=== PATIENT | female | born 1970 | race Caucasian/White ===

== ENCOUNTER → 2017-10-14 | Outpatient (CLI) | payer BC ==
[2017-10-15 12:37] LABS: ACTH 6.74 pg/mL (0.00-45.99)
== END | disposition home or self-care (01) ==
LOC: LABWHC1 11:12
PROVIDERS: ATTEND Internal Medicine Endocrinology, Diabetes & Metabolism
DX: R53.83 Other fatigue (principal)
CPT/HCPCS: 36415; 82024; 82533; 82607; 84146; 84439; 84443; 84445; 84481

== ENCOUNTER → 2017-10-25 | Outpatient (CLI) | payer BC ==
--- NOTE | 2017-10-25 07:59 | US ---
EXAMINATION TYPE: US thyroid st tissue head/neck DATE OF EXAM: 10/25/2017 COMPARISON: NONE CLINICAL HISTORY: R53.83 other fatigue. Abnormal labs, fatigue GLAND SIZE: Right Lobe: 5.3 x 1.9 x 1.6 cm Overall Parenchyma: heterogenous Left Lobe: 5.0 x 1.6 x 1.6 cm Overall Parenchyma: heterogeneous Isthmus Thickness: 0.3 cm NODULES RIGHT: # of nodules measured on right: 0 LEFT: # of nodules measured on left: 0 ISTHMUS: # of nodules measured in the isthmus: 0 Bilateral neck scanned, no evidence of lymphadenopathy. Bilateral enlarged, heterogenous and hypervascular thyroid lobes. IMPRESSION: 1. Mildly enlarged and hypervascular thyroid gland, sonographically compatible with thyroiditis. Carl elation with serum laboratory values to determine subtype of thyroiditis is recommended. 2. No discrete thyroid nodule.
== END | disposition home or self-care (01) ==
LOC: RADUSWWP 06:55
PROVIDERS: ATTEND Internal Medicine Endocrinology, Diabetes & Metabolism
DX: E04.9 Nontoxic goiter, unspecified (principal); E07.89 Other specified disorders of thyroid
CPT/HCPCS: 76536

== ENCOUNTER → 2017-12-26 | Outpatient (CLI) | payer BC ==
--- NOTE | 2017-12-26 17:18 | XR ---
EXAMINATION TYPE: XR chest 2V DATE OF EXAM: 12/26/2017 COMPARISON: NONE HISTORY: Cough TECHNIQUE: Frontal and lateral views of the chest are obtained on 3 images. FINDINGS: There is no focal air space opacity, pleural effusion, or pneumothorax seen. The cardiac silhouette size is within normal limits. The osseous structures are intact. IMPRESSION: No acute cardiopulmonary process.
== END | disposition home or self-care (01) ==
LOC: RADXRYALE 15:42
PROVIDERS: ATTEND Physician Assistant Medical
DX: R06.02 Shortness of breath (principal); R05 Cough
CPT/HCPCS: 71046

== ENCOUNTER → 2018-01-13 | Outpatient (CLI) | payer BC ==
[2018-01-13 18:07] LABS: T4, Free (Free Thyroxine) 1.13 ng/dL (0.78-2.19)
== END | disposition home or self-care (01) ==
LOC: LABWHC1 17:09
PROVIDERS: ATTEND Internal Medicine Endocrinology, Diabetes & Metabolism
DX: E06.3 Autoimmune thyroiditis (principal); R53.83 Other fatigue
CPT/HCPCS: 36415; 84439; 84443; 84481

== ENCOUNTER → 2018-07-25 | Outpatient (CLI) | payer BC | END | disposition home or self-care (01) | LOC: LABWHC1 14:07 | PROVIDERS: ATTEND Internal Medicine Endocrinology, Diabetes & Metabolism | DX: E06.3 Autoimmune thyroiditis (principal) | CPT/HCPCS: 36415; 84439; 84445; 84480; 86376 ==

== ENCOUNTER → 2019-01-11 | Outpatient (CLI) | payer OTHER ==
[2019-01-11 16:29] LABS: Vitamin D 25 Hydroxy 41.4 ng/mL (30.0-100.0)
[2019-01-11 16:48] LABS: Albumin 4.2 g/dL (3.80-4.90); Albumin/Globulin Ratio 2.47 (1.60-3.17); Anion Gap 5.6 mmol/L (4.00-12.00); Calcium 10.7 mg/dL (8.7-10.3); Carbon Dioxide 25.4 mmol/L (21.6-31.8); Globulin 1.7 g/dL (1.6-3.3); Potassium 4.3 mmol/L (3.5-5.5); Total Bilirubin 0.4 mg/dL (0.3-1.2); Total Protein 5.9 g/dL (6.2-8.2)
== END | disposition home or self-care (01) ==
LOC: LABWHC1 09:29
PROVIDERS: ATTEND Internal Medicine Endocrinology, Diabetes & Metabolism
DX: E21.0 Primary hyperparathyroidism (principal)
CPT/HCPCS: 36415; 80053; 82306; 83970; 84443

== ENCOUNTER → 2019-01-29 | Outpatient (CLI) | payer OTHER ==
--- NOTE | 2019-01-30 07:15 | US ---
EXAMINATION TYPE: US thyroid st tissue head/neck DATE OF EXAM: 01/29/2019 COMPARISON: US 10/25/2017 CLINICAL HISTORY: E21.0 Hyperparathyroidism. Primary hyperparathyroidism. GLAND SIZE: Right Lobe: 5.9 x 2.0 x 1.6 cm Overall Parenchyma: heterogenous Left Lobe: 5.8 x 1.7 x 1.6 cm Overall Parenchyma: heterogeneous Isthmus Thickness: 0.34 cm NODULES RIGHT: # of nodules measured on right: 0 LEFT: # of nodules measured on left: 0 ISTHMUS: # of nodules measured in the isthmus: 0 Bilateral neck scanned, no evidence of lymphadenopathy. Heterogeneous appearing bilateral thyroid lobes. IMPRESSION: Nonspecific thyroid heterogeneity glandular enlargement. Correlate with thyroid function testing. No distinct nodularity appreciated.
== END ==
LOC: RADUSWWP 16:54
PROVIDERS: ATTEND Internal Medicine Endocrinology, Diabetes & Metabolism
DX: E04.9 Nontoxic goiter, unspecified (principal)
CPT/HCPCS: 76536

== ENCOUNTER → 2019-03-01 | Outpatient (CLI) | payer OTHER ==
--- NOTE | 2019-03-02 08:37 | BD ---
EXAMINATION TYPE: Axial Bone Density DATE OF EXAM: 03/01/2019 COMPARISON: NONE CLINICAL HISTORY: Height: 5 FT 6 1/2 IN Weight: 197 FRAX RISK QUESTIONS: Secondary Osteoporosis: RISK FACTORS HISTORY OF: MEDICATIONS: 1.557Additional Medications: VIT D, SINGULAIR, SIMBICORT NEEDED Additional History: EXAM MEASUREMENTS: Bone mineral densitometry was performed using the ixigo System. Bone mineral density as measured about the Lumbar spine is: ----- L1-L4(G/cm2): 1.557 T Score Values are as follows: ----- L2: 3.0 ----- L3: 2.5 ----- L4: 3.3 ----- L1-L4: 2.8 BASELINE Bone mineral density about the R hip (g/cm2): 1.070 Bone mineral density about the L hip (g/cm2): 1.165 T Score values are as follows: -----R Neck: 0.2 -----L Neck: 0.9 -----R Total: 1.2 -----L Total: 1.4 BASELINE IMPRESSION: No evidence for osteoporosis or osteopenia. NOTE: T-SCORE=SD OF THE YOUNG ADULT MEAN.
== END | disposition home or self-care (01) ==
LOC: RADBDWWP 16:08
PROVIDERS: ATTEND Internal Medicine Endocrinology, Diabetes & Metabolism
DX: E21.0 Primary hyperparathyroidism (principal)
CPT/HCPCS: 77080

== ENCOUNTER → 2019-06-13 | Outpatient (CLI) | payer OTHER ==
[2019-06-14 00:43] LABS: African American GFR (CKD) 98.9 (60.0-200.0); Albumin 4.3 g/dL (3.80-4.90); Albumin/Globulin Ratio 2.69 (1.60-3.17); Anion Gap 9.2 mmol/L (4.00-12.00); BUN/Creat Ratio 23.75 Ratio (12.00-20.00); Calcium 9.6 mg/dL (8.7-10.3); Carbon Dioxide 24.8 mmol/L (21.6-31.8); Globulin 1.6 g/dL (1.6-3.3); Non-African American GFR(CKD) 85.4 (60.0-200.0); Potassium 4.4 mmol/L (3.5-5.5); Thyroid Peroxidase Antibodies 108.3 U/mL (0.0-60.0); Total Bilirubin 0.3 mg/dL (0.2-1.2); Total Protein 5.9 g/dL (6.2-8.2); Vitamin D 25 Hydroxy 47.3 ng/mL (30.0-100.0)
== END | disposition home or self-care (01) ==
LOC: LABWHC1 15:47
PROVIDERS: ATTEND Internal Medicine Endocrinology, Diabetes & Metabolism
DX: E21.0 Primary hyperparathyroidism (principal); E06.3 Autoimmune thyroiditis
CPT/HCPCS: 36415; 80053; 82306; 83970; 84439; 84443; 86376

== ENCOUNTER → 2020-06-20 | Outpatient (CLI) | payer OTHER ==
[2020-06-20 19:52] LABS: African American GFR (CKD) 98.2 (60.0-200.0); Albumin 4.3 g/dL (3.80-4.90); Albumin/Globulin Ratio 2.26 (1.60-3.17); Anion Gap 4.4 mmol/L (4.00-12.00); BUN/Creat Ratio 18.75 Ratio (12.00-20.00); Calcium 9.3 mg/dL (8.7-10.3); Carbon Dioxide 24.6 mmol/L (21.6-31.8); Globulin 1.9 g/dL (1.6-3.3); Non-African American GFR(CKD) 84.8 (60.0-200.0); Potassium 4.3 mmol/L (3.5-5.5); Total Bilirubin 0.5 mg/dL (0.3-1.2); Total Protein 6.2 g/dL (6.2-8.2)
== END | disposition home or self-care (01) ==
LOC: LABWHC1 13:05
PROVIDERS: ATTEND Internal Medicine Endocrinology, Diabetes & Metabolism
DX: E06.3 Autoimmune thyroiditis (principal); E21.0 Primary hyperparathyroidism; E55.9 Vitamin D deficiency, unspecified
CPT/HCPCS: 36415; 80053; 82306; 83970; 84439; 84443; 86376

== ENCOUNTER → 2020-10-21 | Outpatient (CLI) | payer OTHER | END | disposition home or self-care (01) | LOC: LABWHC1 14:37 | PROVIDERS: ATTEND Internal Medicine Endocrinology, Diabetes & Metabolism | DX: E03.8 Other specified hypothyroidism (principal) | CPT/HCPCS: 36415; 84443 ==

== ENCOUNTER → 2021-02-02 | Outpatient (CLI) | payer OTHER ==
[2021-02-02 19:23] LABS: African American GFR (CKD) 98.2 (60.0-200.0); Albumin 4.3 g/dL (3.80-4.90); Albumin/Globulin Ratio 2.53 (1.60-3.17); Anion Gap 6.2 mmol/L (4.00-12.00); BUN/Creat Ratio 13.75 Ratio (12.00-20.00); Calcium 9.4 mg/dL (8.7-10.3); Carbon Dioxide 23.8 mmol/L (21.6-31.8); Globulin 1.7 g/dL (1.6-3.3); Non-African American GFR(CKD) 84.8 (60.0-200.0); Potassium 4.4 mmol/L (3.5-5.5); Total Bilirubin 0.3 mg/dL (0.3-1.2)
== END | disposition home or self-care (01) ==
LOC: LABWHC1 13:49
PROVIDERS: ATTEND Internal Medicine Endocrinology, Diabetes & Metabolism
DX: E03.8 Other specified hypothyroidism (principal); E55.9 Vitamin D deficiency, unspecified; E21.0 Primary hyperparathyroidism
CPT/HCPCS: 36415; 80053; 82306; 83970; 84443

== ENCOUNTER → 2021-05-04 | Outpatient (CLI) | payer OTHER ==
[2021-05-05 02:49] LABS: African American GFR (CKD) 114.6 (60.0-200.0); Albumin 4.3 g/dL (3.80-4.90); Albumin/Globulin Ratio 2.15 (1.60-3.17); Anion Gap 8.7 mmol/L (4.00-12.00); Calcium 9.5 mg/dL (8.7-10.3); Carbon Dioxide 24.3 mmol/L (21.6-31.8); Non-African American GFR(CKD) 98.9 (60.0-200.0); Potassium 4.3 mmol/L (3.5-5.5); Total Bilirubin 0.4 mg/dL (0.2-1.2); Total Protein 6.3 g/dL (6.2-8.2)
== END | disposition home or self-care (01) ==
LOC: LABWHC1 15:44
PROVIDERS: ATTEND Internal Medicine Endocrinology, Diabetes & Metabolism
DX: E03.8 Other specified hypothyroidism (principal); E55.9 Vitamin D deficiency, unspecified; N25.81 Secondary hyperparathyroidism of renal origin
CPT/HCPCS: 36415; 80053; 82306; 83970; 84443

== ENCOUNTER 2021-06-02 22:49 | Emergency (ER) | payer OTHER ==
[2021-06-02 23:07] VITALS: RESP 18; TEMP 97.6
[2021-06-02] MEDS ORDERED: ONDANSETRON 4 MG/2 ML VIAL IVP STA (23:33)
[2021-06-02] MEDS ORDERED: SODIUM CHLORIDE 0.9% 1,000 ML IV STA (23:33)
--- NOTE | 2021-06-02 23:45 | ED ---
Abdominal Pain HPI - General Chief Complaint: Abdominal Pain Stated Complaint: Abd Pain Time Seen by Provider: 06/02/21 23:19 Source: patient Mode of arrival: ambulatory Limitations: no limitations - History of Present Illness Initial Comments: 41-year-old female presents to emergency Department with chief complaint of abdominal pain. Patient reports patient reports this feels like uterine cramping sensation which she previously has had. States she had a uterine ablation about one year ago and is not been experiencing cramping like this since. States this episode started about 9 PM tonight and is located in the lower abdominal region. States she took ibuprofen no significant improvement in his symptoms. She does report nausea and 1 episode of nonbilious nonbloody vomiting. She denies any constipation or diarrhea. Denies any radiation of the pain. Denies any fevers or chills. Pain does not appear to postprandial. Denies any vaginal or urinary symptoms. - Related Data Home Medications Medication Instructions Recorded Confirmed Fexofenadine HCl [Lakeisha Allergy] 180 mg PO DAILY 06/02/21 06/02/21 Levothyroxine Sodium [Synthroid] 50 mcg PO DAILY 06/02/21 06/02/21 Montelukast Sodium [Singulair] 10 mg PO HS 06/02/21 06/02/21 Allergies Allergy/AdvReac Type Severity Reaction Status Date / Time No Known Allergies Allergy Verified 06/02/21 23:35 Review of Systems ROS Statement: Those systems with pertinent positive or pertinent negative responses have been documented in the HPI. ROS Other: All systems not noted in ROS Statement are negative. Past Medical History Past Medical History: Thyroid Disorder History of Any Multi-Drug Resistant Organisms: None Reported Past Surgical History: Section, Tubal Ligation Additional Past Surgical History / Comment(s): uterine ablation Past Psychological History: No Psychological Hx Reported Smoking Status: Never smoker Past Alcohol Use History: Occasional Past Drug Use History: None Reported General Exam Limitations: no limitations General appearance: alert, in no apparent distress Head exam: Present: atraumatic, normocephalic, normal inspection Eye exam: Present: normal appearance, PERRL, EOMI Pupils: Present: normal accommodation ENT exam: Present: normal exam, normal oropharynx, mucous membranes moist Neck exam: Present: normal inspection, full ROM. Absent: tenderness, lymphadenopathy Respiratory exam: Present: normal lung sounds bilaterally. Absent: respiratory distress, wheezes, rales, rhonchi, stridor Cardiovascular Exam: Present: regular rate, normal rhythm, normal heart sounds. Absent: systolic murmur GI/Abdominal exam: Present: soft, tenderness (Lower abdominal tenderness, mild. Negative McBurney point tenderness.). Absent: distended, guarding, rebound, rigid Extremities exam: Present: normal inspection, full ROM, normal capillary refill. Absent: tenderness Back exam: Present: normal inspection, full ROM. Absent: tenderness, CVA tenderness (R), CVA tenderness (L) Neurological exam: Present: alert, oriented X3 Psychiatric exam: Present: normal affect, normal mood Skin exam: Present: warm, dry, intact, normal color Course Vital Signs 06/02/21 06/02/21 23:02 23:43 Temperature 97.6 F Pulse Rate 59 L 77 Respiratory 18 18 Rate Blood Pressure 106/72 115/67 O2 Sat by Pulse 98 97 Oximetry Medical Decision Making - Medical Decision Making 41-year-old female presents to emergency Department with chief complaint of abdominal pain. On physical examination, mild lower abdominal tenderness. Patient is otherwise well appearing and resting comfortably in bed. Patient was only given IV fluids and she reports feeling much better. CBC CMP UA unremarkable. No imaging necessary at this time. 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 Patient was not given any analgesics and she was feeling better. Strict return parameters with discussed the patient was understanding and agreeable. - Lab Data Result diagrams: 06/02/21 23:30 06/02/21 23:30 Lab Results 06/02/21 06/02/21 06/02/21 Range/Units 23:30 23:30 23:30 WBC 8.2 (3.8-10.6) k/uL RBC 4.31 (3.80-5.40) m/uL Hgb 13.7 (11.4-16.0) gm/dL Hct 39.6 (34.0-46.0) % MCV 91.9 (80.0-100.0) fL MCH 31.7 (25.0-35.0) pg MCHC 34.5 (31.0-37.0) g/dL RDW 13.4 (11.5-15.5) % Plt Count 196 (150-450) k/uL MPV 8.2 Neutrophils % 69 % Lymphocytes % 22 % Monocytes % 5 % Eosinophils % 2 % Basophils % 1 % Neutrophils # 5.7 (1.3-7.7) k/uL Lymphocytes # 1.8 (1.0-4.8) k/uL Monocytes # 0.4 (0-1.0) k/uL Eosinophils # 0.2 (0-0.7) k/uL Basophils # 0.1 (0-0.2) k/uL Sodium 135 L (137-145) mmol/L Potassium 3.8 (3.5-5.1) mmol/L Chloride 107 (98-107) mmol/L Carbon Dioxide 21 L (22-30) mmol/L Anion Gap 7 mmol/L BUN 17 (7-17) mg/dL Creatinine 0.76 (0.52-1.04) mg/dL Est GFR (CKD-EPI)AfAm >90 (>60 ml/min/1.73 sqM) Est GFR (CKD-EPI)NonAf >90 (>60 ml/min/1.73 sqM) Glucose 148 H (74-99) mg/dL Calcium 9.8 (8.4-10.2) mg/dL Total Bilirubin 0.2 (0.2-1.3) mg/dL AST 28 (14-36) U/L ALT 17 (4-34) U/L Alkaline Phosphatase 58 (38-126) U/L Total Protein 6.2 L (6.3-8.2) g/dL Albumin 3.9 (3.5-5.0) g/dL Lipase 68 (23-300) U/L Urine Color Yellow Urine Appearance Cloudy H (Clear) Urine pH 6.5 (5.0-8.0) Ur Specific [place] 1.022 (1.001-1.035) Urine Protein Trace H (Negative) Urine Glucose (UA) Negative (Negative) Urine Ketones Negative (Negative) Urine Blood Negative (Negative) Urine Nitrite Negative (Negative) Urine Bilirubin Negative (Negative) Urine Urobilinogen <2.0 (<2.0) mg/dL Ur Leukocyte Esterase Negative (Negative) Urine RBC 1 (0-5) /hpf Urine WBC 3 (0-5) /hpf Ur Squamous Epith Cells 1 (0-4) /hpf Amorphous Sediment Rare H (None) /hpf Urine Bacteria Rare H (None) /hpf Urine Mucus Rare H (None) /hpf Disposition Clinical Impression: Abdominal pain Disposition: HOME SELF-CARE Condition: Stable Instructions (If sedation given, give patient instructions): Abdominal Pain (ED) Additional Instructions: Please return to the Emergency Department if symptoms worsen or any other concerns. Follow-up with urology. Is patient prescribed a controlled substance at d/c from ED?: No Referrals: Phillip Christensen DO [Primary Care Provider] - 1-2 days Time of Disposition: 00:42
[2021-06-03] LABS: Basophils # (A) 0.1 k/uL (0-0.2); Basophils % (A) 1 %; Eosinophils # (A) 0.2 k/uL (0-0.7); Eosinophils % (A) 2 %; HCT 39.6 % (34.0-46.0); HGB 13.7 gm/dL (11.4-16.0); Lymphocytes # (A) 1.8 k/uL (1.0-4.8); Lymphocytes % (A) 22 %; MCH 31.7 pg (25.0-35.0); MCHC 34.5 g/dL (31.0-37.0); MCV 91.9 fL (80.0-100.0); Mean Platelet Volume 8.2; Monocytes # (A) 0.4 k/uL (0-1.0); Monocytes % (A) 5 %; Neutrophils # (A) 5.7 k/uL (1.3-7.7); Neutrophils % (A) 69 %; Platelet Count 196 k/uL (150-450); RBC 4.31 m/uL (3.80-5.40); RDW 13.4 % (11.5-15.5); WBC 8.2 k/uL (3.8-10.6)
[2021-06-03 00:04] LABS: Amorphous Sediment,Urine Rare /hpf; Appearance,Urine Cloudy (Clear); Bacteria,Urine Rare /hpf; Bilirubin,Urine Negative (Negative); Blood,Urine Negative (Negative); Color,Urine Yellow; Glucose,Urine (UA) Negative (Negative); Ketones,Urine Negative (Negative); Leukocyte Esterase,Urine Negative (Negative); Mucus,Urine Rare /hpf; Nitrite,Urine Negative (Negative); PH, Urine 6.5 (5.0-8.0); Protein,Urine Trace (Negative); RBC,Urine 1 /hpf (0-5); Specific Gravity,Urine 1.022 (1.001-1.035); Squamous Epithelial Cell,Urine 1 /hpf (0-4); Urobilinogen,Urine <2.0 mg/dL (<2.0); WBC,Urine 3 /hpf (0-5)
[2021-06-03 00:10] LABS: ALT 17 U/L (4-34); AST 28 U/L (14-36); African American GFR (CKD) >90 (>60 ml/min/1.73 sqM); Albumin 3.9 g/dL (3.5-5.0); Alkaline Phosphatase 58 U/L (38-126); Anion Gap 7 mmol/L; Blood Urea Nitrogen 17 mg/dL (7-17); Calcium 9.8 mg/dL (8.4-10.2); Carbon Dioxide 21 mmol/L (22-30); Chloride 107 mmol/L (98-107); Glucose 148 mg/dL (74-99); Lipase 68 U/L (23-300); Non-African American GFR(CKD) >90 (>60 ml/min/1.73 sqM); Potassium 3.8 mmol/L (3.5-5.1); Sodium 135 mmol/L (137-145); Total Bilirubin 0.2 mg/dL (0.2-1.3); Total Protein 6.2 g/dL (6.3-8.2)
[2021-06-03 00:59] VITALS: BP 109/59; PULSE 86
== END 2021-06-03 00:56 | disposition home or self-care (01) ==
LOC: EC 22:49
DX: R10.30 Lower abdominal pain, unspecified (principal); R11.2 Nausea with vomiting, unspecified
CPT/HCPCS: 36415; 80053; 81001; 83690; 85025; 96360; 99284

== ENCOUNTER → 2021-10-21 | Outpatient (CLI) | payer OTHER ==
[2021-10-21 19:29] LABS: African American GFR (CKD) 100.9 (60.0-200.0); Albumin 4.4 g/dL (3.8-4.9); Albumin/Globulin Ratio 2.48 (1.60-3.17); Anion Gap 13.5 mmol/L (10.00-18.00); BUN/Creat Ratio 12.67 Ratio (12.00-20.00); Blood Urea Nitrogen 9.9 mg/dL (9.0-27.0); Calcium 9.3 mg/dL (8.7-10.3); Carbon Dioxide 20.3 mmol/L (20.0-27.5); Globulin 1.8 g/dL (1.6-3.3); Non-African American GFR(CKD) 87.1 (60.0-200.0); Potassium 4.1 mmol/L (3.5-5.5); Total Bilirubin 0.3 mg/dL (0.30-1.20); Total Protein 6.2 g/dL (6.2-8.2)
== END | disposition home or self-care (01) ==
LOC: LABWHC1 12:06
PROVIDERS: ATTEND Internal Medicine Endocrinology, Diabetes & Metabolism
DX: E03.8 Other specified hypothyroidism (principal); E55.9 Vitamin D deficiency, unspecified; Z86.39 Personal history of other endocrine, nutritional and metabolic disease
CPT/HCPCS: 36415; 80053; 82306; 83970; 84443

== ENCOUNTER → 2022-04-21 | Outpatient (CLI) | payer OTHER ==
[2022-04-21 23:14] LABS: ALT 17 U/L (8-44); AST 19 U/L (13-35); African American GFR (CKD) 84.6 (60.0-200.0); Albumin 4.4 g/dL (3.8-4.9); Albumin/Globulin Ratio 2.15 (1.60-3.17); Alkaline Phosphatase 58 U/L (41-126); BUN/Creat Ratio 11.84 Ratio (12.00-20.00); Blood Urea Nitrogen 10.6 mg/dL (9.0-27.0); Calcium 9.3 mg/dL (8.7-10.3); Carbon Dioxide 23.1 mmol/L (20.0-27.5); Chloride 104 mmol/L (96-109); Glucose 80 mg/dL (70-110); Sodium 139 mmol/L (135-145); Total Bilirubin <0.15 mg/dL (0.30-1.20); Total Protein 6.4 g/dL (6.2-8.2)
== END | disposition home or self-care (01) ==
LOC: LABWHC1 15:08
PROVIDERS: ATTEND Internal Medicine Endocrinology, Diabetes & Metabolism
DX: E03.8 Other specified hypothyroidism (principal); E55.9 Vitamin D deficiency, unspecified; Z86.39 Personal history of other endocrine, nutritional and metabolic disease
CPT/HCPCS: 36415; 80053; 82306; 83970; 84443

== ENCOUNTER → 2022-10-21 | Outpatient (CLI) | payer OTHER ==
[2022-10-21 23:37] LABS: African American GFR (CKD) 85.5 (60.0-200.0); Albumin 4.3 g/dL (3.8-4.9); Albumin/Globulin Ratio 2.31 (1.60-3.17); Anion Gap 9.8 mmol/L (10.00-18.00); BUN/Creat Ratio 12.63 Ratio (12.00-20.00); Blood Urea Nitrogen 11.2 mg/dL (9.0-27.0); Calcium 9.4 mg/dL (8.7-10.3); Carbon Dioxide 24.4 mmol/L (20.0-27.5); Globulin 1.9 g/dL (1.6-3.3); Non-African American GFR(CKD) 73.8 (60.0-200.0); Potassium 4.3 mmol/L (3.5-5.5); Total Bilirubin 0.2 mg/dL (0.30-1.20); Total Protein 6.1 g/dL (6.2-8.2)
== END | disposition home or self-care (01) ==
LOC: LABWHC1 13:21
PROVIDERS: ATTEND Internal Medicine Endocrinology, Diabetes & Metabolism
DX: E03.8 Other specified hypothyroidism (principal); E55.9 Vitamin D deficiency, unspecified; Z86.39 Personal history of other endocrine, nutritional and metabolic disease
CPT/HCPCS: 36415; 80053; 82306; 83970; 84443

== ENCOUNTER → 2023-04-27 | Outpatient (CLI) | payer OTHER ==
[2023-04-27 20:47] LABS: ALT 17 U/L (8-44); AST 19 U/L (13-35); Albumin 4.1 d/dL (3.8-4.9); Albumin/Globulin Ratio 2.05 Ratio (1.60-3.17); Alkaline Phosphatase 70 U/L (41-126); BUN/Creat Ratio 16.67 Ratio (12.00-20.00); Calcium 9.5 mg/dL (8.7-10.3); Chloride 112 mmol/L (96-109); Glucose 90 mg/dL (70-110); Potassium 4.3 mmol/L (3.5-5.5); Sodium 144 mmol/L (135-145); Total Bilirubin 0.4 mg/dL (0.3-1.2); Total Protein 6.1 d/dL (6.2-8.2)
== END | disposition home or self-care (01) ==
LOC: LABWHC1 13:06
PROVIDERS: ATTEND Internal Medicine Endocrinology, Diabetes & Metabolism
DX: E03.8 Other specified hypothyroidism (principal); E55.9 Vitamin D deficiency, unspecified; Z86.39 Personal history of other endocrine, nutritional and metabolic disease
CPT/HCPCS: 36415; 80053; 82306; 83970; 84443

== ENCOUNTER → 2024-01-18 | Outpatient (CLI) | payer OTHER ==
[2024-01-18 19:12] LABS: ALT 25 U/L (8-44); AST 23 U/L (13-35); Albumin 4.3 g/dL (3.8-4.9); Albumin/Globulin Ratio 2.15 Ratio (1.60-3.17); Alkaline Phosphatase 82 U/L (41-126); Blood Urea Nitrogen 17.2 mg/dL (9.0-27.0); Calcium 9.4 mg/dL (8.7-10.3); Carbon Dioxide 23.1 mmol/L (21.6-31.8); Chloride 107 mmol/L (96-109); Glucose 89 mg/dL (70-110); Potassium 4.3 mmol/L (3.5-5.5); Sodium 141 mmol/L (135-145); Total Bilirubin <0.2 mg/dL (0.3-1.2); Total Protein 6.3 g/dL (6.2-8.2)
== END | disposition home or self-care (01) ==
LOC: LABWHC1 14:18
PROVIDERS: ATTEND Internal Medicine Endocrinology, Diabetes & Metabolism
DX: E03.8 Other specified hypothyroidism (principal); E55.9 Vitamin D deficiency, unspecified; Z86.39 Personal history of other endocrine, nutritional and metabolic disease
CPT/HCPCS: 36415; 80053; 82306; 83970; 84443

== ENCOUNTER 2024-06-20 21:47 | Observation (INO) | payer OTHER ==
[2024-06-21] MEDS ORDERED: VANCOMYCIN IV PER PHARMACY 1 EACH MISC MISCELLANE PRN (04:07)
[2024-06-21] MEDS: CEFEPIME 1 GM in SODIUM CHLORIDE 0.9% 50 ML IVPB ONE (04:57)
--- NOTE | 2024-06-21 05:04 | CT ---
EXAMINATION TYPE: CT femur RT w con DATE OF EXAM: 06/21/2024 COMPARISON: NONE HISTORY: Abscess. Leg infection. CT DLP: 726.4 mGycm. Automated Exposure Control for Dose Reduction was Utilized. TECHNIQUE: CT scan of the right femur is performed with IV contrast. FINDINGS: No acute fracture or dislocation in the right femur. No suspicious bony destruction is seen. There is moderate fat stranding and subcutaneous edema in the anterior right thigh extending inferiorly. No w ell-formed focal fluid collection or drainable abscess is seen. There are some prominent but subcenti meter reactive right groin lymph nodes along the medial aspect. The muscle bulk is maintained. IMPRESSION: Anterior soft tissue infection or acute cellulitis right thigh extending inferiorly. No d rainable abscess currently.
--- NOTE | 2024-06-21 05:14 | ED ---
Skin/Abscess/FB HPI - General Chief complaint: Skin/Abscess/Foreign Body Stated complaint: Cellulitis Rt Leg Time Seen by Provider: 06/21/24 04:05 Source: patient, RN notes reviewed Mode of arrival: ambulatory Limitations: no limitations - History of Present Illness Initial comments: This is a 54-year-old female who presents to the emergency department for cellulitis to the right lower extremity. States that this started as a small red spot on the right thigh 1 week ago. This has continued to get larger and the redness has started to spread significantly. She was started on Bactrim by urgent care 3 days ago but seems to be getting worse. She has since started to develop fevers and chills. - Related Data Home Medications Medication Instructions Recorded Confirmed Fexofenadine HCl [Lakeisha Allergy] 180 mg PO DAILY 06/02/21 06/02/21 Levothyroxine Sodium [Synthroid] 50 mcg PO DAILY 06/02/21 06/02/21 Montelukast Sodium [Singulair] 10 mg PO HS 06/02/21 06/02/21 Allergies Allergy/AdvReac Type Severity Reaction Status Date / Time No Known Allergies Allergy Verified 06/20/24 21:59 Review of Systems ROS Statement: Those systems with pertinent positive or pertinent negative responses have been documented in the HPI. ROS Other: All systems not noted in ROS Statement are negative. Past Medical History Past Medical History: Thyroid Disorder History of Any Multi-Drug Resistant Organisms: None Reported Past Surgical History: Section, Tubal Ligation Additional Past Surgical History / Comment(s): uterine ablation Past Psychological History: No Psychological Hx Reported Smoking Status: Never smoker Past Alcohol Use History: Occasional Past Drug Use History: None Reported - Past Family History Mother Family Medical History: Hypertension General Exam Limitations: no limitations General appearance: alert, in no apparent distress Head exam: Present: atraumatic, normocephalic, normal inspection Respiratory exam: Present: normal lung sounds bilaterally. Absent: respiratory distress, wheezes, rales, rhonchi, stridor Cardiovascular Exam: Present: regular rate, normal rhythm, normal heart sounds. Absent: systolic murmur, diastolic murmur, rubs, gallop, clicks Extremities exam: Present: other (Erythema, warmth, induration, and tenderness to the right thigh. There is a centralized lesion with active drainage) Neurological exam: Present: alert, oriented X3, CN II-XII intact Psychiatric exam: Present: normal affect, normal mood Course Vital Signs 06/20/24 06/21/24 21:56 06:04 Temperature 100.1 F H 97.9 F Pulse Rate 111 H 84 Respiratory 18 16 Rate Blood Pressure 128/79 118/73 O2 Sat by Pulse 98 96 Oximetry Medical Decision Making - Medical Decision Making This is a 54-year-old female who presents to the emergency department for an infection to her right lower extremity. Was pt. sent in by a medical professional or institution? @ -No Did you speak to anyone other than the patient for history? @ -No Did you review nursing and triage notes? @ -Yes, and I agree, it is accurate with regards to the patient's symptoms. Were old charts reviewed? @ -No Differential Diagnosis? @ -Differential Rash: Roseola, measles, Lyme disease, erythema multiforme, cellulitis, toxic shock syndrome, Leon Angel syndrome, Kawasaki disease, sue mountain spotted fever, contact dermatitis, allergic dermatitis, measles, mumps, rubella, varicella, meningococcal disease, drug reaction, coxsackievirus, This is not meant to be an all-inclusive list. EKG interpreted by me (3pts min.)? @ -Not obtained X-rays interpreted by me (1pt min.)? @ -Not obtained CT interpreted by me (1pt min.)? @ -CT scan of the right femur obtained. My interpretation identifies no evidence of abscess formation. U/S interpreted by me (1pt. min.)? @ -Not obtained What testing was considered but not performed? (CT, X-rays, U/S, labs)? Why? @ -None What meds were considered but not given? Why? @ -None Did you discuss the management of the patient with other professionals? @ -Yes, Dr. Snow, who accepts the patient for admission. Did you reconcile home meds? @ -No Was smoking cessation discussed for >3mins.? @ -No Was critical care preformed (if so, how long)? @ -No Were there social determinants of health that impacted care today? How? (Homelessness, low income, unemployed, alcoholism, drug addiction, transportation, low edu. Level, literacy, decrease access to med. care, senior living, rehab)? @ -No Was there de-escalation of care discussed even if they declined? (Discuss DNR or withdrawal of care, Hospice)? @ -No What co-morbidities impacted this encounter? (DM, HTN, Smoking, COPD, CAD, Cancer, CVA, Hep., AIDS, mental health diagnosis, sleep apnea, morbid obesity)? @ -None Was patient admitted / discharged? @ -Admitted. On arrival the patient's temperature was elevated and she was tachycardic. CRP elevated at 16.48. CT scan of the right femur demonstrates anterior soft tissue infection or acute cellulitis to the right thigh extending inferiorly. No drainable abscess is currently present. The computers were on downtime for a portion of the patient's visit and some of her lab results may need to be scanned in. Aerobic and anaerobic wound cultures were ordered at that time. Patient started on vancomycin and cefepime and admitted for cellulitis and failed outpatient management. Case discussed with ED attending, Dr. Abarca. Undiagnosed new problem with uncertain prognosis? @ -None Drug Therapy requiring intensive monitoring for toxicity (Heparin, Nitro, Insulin, Cardizem)? @ -None Were any procedures done? @ -None Diagnosis/symptom? @ -Cellulitis, failure of outpatient management Acute, or Chronic, or Acute on Chronic? @ -Acute Uncomplicated (without systemic symptoms) or Complicated (systemic symptoms)? @ -Complicated Side effects of treatment? @ -None Exacerbation, Progression, or Severe Exacerbation] @ -Not applicable Poses a threat to life or bodily function? @ -Yes, worsening infection can lead to septic shock and - Radiology Data Radiology results: report reviewed, image reviewed Disposition Clinical Impression: Cellulitis of right thigh, Failure of outpatient treatment Disposition: ADMITTED IP TO THIS HOSP
[2024-06-21] MEDS ORDERED: HYDROcodone/APAP 5-325MG 1 EACH TAB PO PRN (05:22)
[2024-06-21] MEDS ORDERED: NALOXONE 0.4 MG/ML 1 ML VIAL IV PRN (05:22)
[2024-06-21] MEDS ORDERED: IBUPROFEN 400 MG TAB PO PRN (05:22)
[2024-06-21] MEDS ORDERED: MORPHINE SULFATE 4 MG/ML SYRINGE IV PRN (05:22)
[2024-06-21] MEDS ORDERED: ONDANSETRON 4 MG/2 ML VIAL IVP PRN (05:22)
--- NOTE | 2024-06-21 05:38 | P.HPIM ---
History of Present Illness H&P Date: 06/21/24 Patient is a 54-year-old female with a PMH of hypothyroidism and allergy induced asthma who presents to the emergency room with complaints of right thigh redness and pain. Patient reports her symptoms started roughly 1 week ago with a small red spot which gradually worsened. She was seen at an urgent care center this past Tuesday and was started on Bactrim which has not alleviated her symptoms. She also reports mild chills and fever. Denies experiencing chest discomfort, shortness of breath, cough, nausea, vomiting, abdominal pain, diarrhea. Denies any prior history of skin infections. Reports 2 out of 10 pain at the right thigh at the time of interview. Right thigh CT revealed findings of acute cellulitis without any obvious abscess. No laboratory evaluation was performed in the emergency room. The patient had a Tmax of 100.1 F with pulse of 111 and BP 128/79 with SpO2 90% on room air. ED documentation reviewed and case discussed with ED provider. Review of systems: Pertinent positives and negatives as discussed in HPI, a complete review of systems was performed and all other systems are negative. Physical examination: Vital signs reviewed General: non toxic, no distress, appears at stated age, normal weight Derm: Right thigh anterior and medial large area of erythema with central ulceration with minimal drainage, warm Head: atraumatic, normocephalic, symmetric Eyes: EOMI, no lid lag, anicteric sclera, pupils equal round reactive to light ENT: Nose and ears atraumatic Neck: No cervical lymphadenopathy, trachea midline, supple Mouth: no lip lesion, mucus membranes moist Cardiovascular: S1S2 reg, no murmur, positive dorsalis pedis pulse bilateral, no edema Lungs: CTA bilateral, no rhonchi, no rales, no accessory muscle use Abdominal: soft, nontender to palpation, no guarding Ext: muscle strength 5 out of 5 in all 4 extremities grossly, no gross muscle atrophy, no contractures, Neuro: CN II-XI grossly intact, no gross focal neuro deficits Psych: Alert, oriented, appropriate affect Assessment: Right thigh cellulitis with failed outpatient treatment Chronic conditions: Hypothyroidism, exercise-induced asthma Imaging: Right thigh CT revealed findings of acute cellulitis without any obvious abscess. Data Review: No laboratory evaluation was performed in the emergency room. The patient had a Tmax of 100.1 F with pulse of 111 and BP 128/79 with SpO2 90% on room air. Plan: Continue vancomycin and cefepime at this time Continue IV fluids with normal saline 100 cc/h Pain control with [place] as needed Blood and wound cultures ordered Involved area marked Resume home meds once reconciled in am DVT prophylaxis: Lovenox Subq The patient is admitted with an anticipated fewer than 2 midnight stay for evaluation of cellulitis CODE STATUS: Full Code Discussed with: Patient Anticipated discharge place: Home Past Medical History Past Medical History: Thyroid Disorder History of Any Multi-Drug Resistant Organisms: None Reported Past Surgical History: Section, Tubal Ligation Additional Past Surgical History / Comment(s): uterine ablation Past Psychological History: No Psychological Hx Reported Smoking Status: Never smoker Past Alcohol Use History: Occasional Past Drug Use History: None Reported - Past Family History Mother Family Medical History: Hypertension Medications and Allergies Home Medications Medication Instructions Recorded Confirmed Type Fexofenadine HCl [Lakeisha Allergy] 180 mg PO DAILY 06/02/21 06/02/21 History Levothyroxine Sodium [Synthroid] 50 mcg PO DAILY 06/02/21 06/02/21 History Montelukast Sodium [Singulair] 10 mg PO HS 06/02/21 06/02/21 History Allergies Allergy/AdvReac Type Severity Reaction Status Date / Time No Known Allergies Allergy Verified 06/20/24 21:59 Physical Exam Vitals: Vital Signs Temp Pulse Resp BP Pulse Ox 06/20/24 21:56 100.1 F H 111 H 18 128/79 98 Intake and Output 06/20/24 06/20/24 06/21/24 14:59 22:59 06:59 Other: Weight 99.79 kg
[2024-06-21] MEDS: SODIUM CHLORIDE 0.9% 1,000 ML IV STA (05:55)
[2024-06-21] MEDS: VANCOMYCIN 1,500 MG in SODIUM CHLORIDE 0.9% 500 ML 500 ML IVPB ONE (05:55)
[2024-06-21 07:58] LABS: HCT 32.8 % (34.0-46.0); HGB 11.4 gm/dL (11.4-16.0); MCH 31.6 pg (25.0-35.0); MCHC 34.7 g/dL (31.0-37.0); Mean Platelet Volume 8.4; Platelet Count 183 k/uL (150-450); RBC 3.61 m/uL (3.80-5.40); RDW 13.3 % (11.5-15.5); WBC 8.2 k/uL (3.8-10.6)
[2024-06-21 08:08] LABS: African American GFR (CKD) >90 (>60 ml/min/1.73 sqM); Anion Gap 3 mmol/L; Blood Urea Nitrogen 11 mg/dL (7-17); Calcium 8.5 mg/dL (8.4-10.2); Carbon Dioxide 21 mmol/L (22-30); Chloride 111 mmol/L (98-107); Glucose 86 mg/dL (74-99); Non-African American GFR(CKD) >90 (>60 ml/min/1.73 sqM); Potassium 3.9 mmol/L (3.5-5.1); Sodium 135 mmol/L (137-145)
[2024-06-21] MEDS: ENOXAPARIN 40 MG/0.4 ML SYRINGE SQ SCH (08:24)
[2024-06-21 09:18] LABS: Basophils % (A) 0 %; Eosinophils # (A) 0.2 k/uL (0-0.7); Eosinophils % (A) 2 %; HCT 35.1 % (34.0-46.0); HGB 12.1 gm/dL (11.4-16.0); Lymphocytes # (A) 1.2 k/uL (1.0-4.8); Lymphocytes % (A) 12 %; MCH 31.6 pg (25.0-35.0); MCHC 34.4 g/dL (31.0-37.0); Mean Platelet Volume 9.3; Monocytes # (A) 0.5 k/uL (0-1.0); Monocytes % (A) 5 %; Neutrophils # (A) 7.9 k/uL (1.3-7.7); Neutrophils % (A) 79 %; Platelet Count 205 k/uL (150-450); RBC 3.81 m/uL (3.80-5.40); RDW 13.5 % (11.5-15.5)
[2024-06-21 12:00] LABS: Erythrocyte Sedimentation Rate 22 mm/Hr (0-30)
[2024-06-21 14:08] LABS: ALT 14 U/L (4-34); AST 21 U/L (14-36); African American GFR (CKD) 86 (>60 ml/min/1.73 sqM); Albumin 3.5 g/dL (3.5-5.0); Albumin/Globulin Ratio 1.6; Alkaline Phosphatase 77 U/L (38-126); Anion Gap 5 mmol/L; Blood Urea Nitrogen 13 mg/dL (7-17); C Reactive Protein 16.5 mg/dL (<1.0); Calcium 8.6 mg/dL (8.4-10.2); Carbon Dioxide 22 mmol/L (22-30); Chloride 109 mmol/L (98-107); Globulin 2.2 g/dL; Glucose 109 mg/dL (74-99); Non-African American GFR(CKD) 75 (>60 ml/min/1.73 sqM); Sodium 136 mmol/L (137-145); Total Bilirubin 0.7 mg/dL (0.2-1.3); Total Protein 5.7 g/dL (6.3-8.2)
[2024-06-21] MEDS: CEFEPIME 2 GM in SODIUM CHLORIDE 0.9% 100 ML IVPB SCH (14:30)
[2024-06-21] MEDS: VANCOMYCIN 1,500 MG in SODIUM CHLORIDE 0.9% 500 ML 500 ML IVPB SCH (16:45)
[2024-06-21] MEDS: ACETAMINOPHEN TAB 325 MG TAB PO PRN (22:01)
[2024-06-22 06:21] LABS: African American GFR (CKD) >90 (>60 ml/min/1.73 sqM); Non-African American GFR(CKD) 87 (>60 ml/min/1.73 sqM)
[2024-06-22] MEDS: LEVOTHYROXINE 50 MCG TAB PO SCH (08:53)
[2024-06-22] MEDS: LORATADINE 10 MG TAB PO SCH (08:53)
--- NOTE | 2024-06-22 09:11 | P.PN ---
Subjective Progress Note Date: 06/22/24 54-year-old female with a PMH of hypothyroidism and allergy induced asthma who presents to the emergency room with complaints of right thigh redness and pain. She was seen at an urgent care center this past Tuesday and was started on Bactrim which has not alleviated her symptoms. Right thigh CT revealed findings of acute cellulitis without any obvious abscess. The patient had a Tmax of 100.1 F with pulse of 111 and BP 128/79 with SpO2 90% on room air. Patient was started on Vancomycin and Cefepime and admitted for treatment of cellulitis failed outpatient therapy. 06/22 Patient was seen and examined. Erythema around the right inner thigh improved when compared to outline. Still draining a significant amount of purulent material. Renal function WNL. WCx growing rare PMN and gram + cocci. General: non toxic, no distress, appears at stated age Derm: warm, dry Head: atraumatic, normocephalic, symmetric Eyes: EOMI, no lid lag, anicteric sclera Mouth: no lip lesion, mucus membranes moist Cardiovascular: good distal perfusion in all 4 extremities Lungs: breathing comfortably, no accessory muscle use Ext: right medial thigh with significant erythema improved when compared to outline draining purulent material Neuro: no focal neuro deficits Psych: Alert, oriented, appropriate affect Based on my assessment of this patient, this patient meets a high complexity level of care. Cellulitis: CT no abscess identified. Continue Vancomycin dosed per pharmacy and Cefepime 2g IV TID. Monitor renal function while on Vancomycin. Ordered MRSA screen. Follow Wound Cx. ID consulted. Asthma not in acute exacerbation: Singulair 10 mg PO QHS. Hypothyroidism: Synthroid 50 mcg PO QD. CODE STATUS: FULL CODE DVT Prophylaxis: Lovenox SQ GI Prophylaxis: Designated medical POA if patient is not able to make medical decisions for themselves: I have reviewed the following inside sales consultant notes: I have reviewed the results of the following tests: Renal function. WCx I have ordered the following tests: Renal function. I have discussed the care of this patient with the following independent historian: MARGOT. I have independently interpreted the following test below: I have discussed the management of this patient with the following physician: Dr. Jones Objective - Vital Signs Vital signs: Vital Signs Temp 98.2 F 06/22/24 02:00 Pulse 81 06/22/24 02:00 Resp 18 06/22/24 02:00 BP 90/58 06/22/24 02:00 Pulse Ox 96 06/22/24 02:00 FiO2 Intake & Output 06/21/24 06/22/24 06/22/24 18:59 06:59 18:59 Intake Total 318 480 Balance 318 480 Intake: Oral 318 480 Other: # Voids 2 3 - Labs CBC & Chem 7: 06/21/24 07:20 06/22/24 05:50 Labs: Abnormal Lab Results - Last 24 Hours (Table) 06/21/24 06/21/24 06/21/24 Range/Units 01:05 01:05 07:20 RBC 3.61 L (3.80-5.40) m/uL Hct 32.8 L (34.0-46.0) % Neutrophils # 7.9 H (1.3-7.7) k/uL Sodium 136 L (137-145) mmol/L Chloride 109 H (98-107) mmol/L Glucose 109 H (74-99) mg/dL C-Reactive Protein 16.5 H (<1.0) mg/dL Total Protein 5.7 L (6.3-8.2) g/dL Microbiology - Last 24 Hours (Table) 06/21/24 00:05 Gram Stain - Preliminary Thigh - Right
[2024-06-22] MEDS: MONTELUKAST 10 MG TAB PO SCH (21:29)
--- NOTE | 2024-06-22 22:26 | P.CONS ---
History of Present Illness - Reason for Consult Consult date: 06/22/24 Cellulitis with drainage Requesting physician: Markel Calderón - Chief Complaint Right thigh pain and swelling x days - History of Present Illness Patient is a 54-year-old female with past medical history negative for drug induced asthma hypothyroidism presenting to the ER for evaluation of right thigh pain swelling and redness patient mention he started as a small red spot likely folliculitis about a week ago subsequently has becoming more swollen right and painful patient was seen in the urgent care 3 days before presentation the hospital has been treated with the Bactrim however the patient did not have any improvement patient started running a fever for the patient presented to hospital patient on arrival to the ER did have a temperature of 100.1 F that has subsequently resolved patient was not tachycardic hypotensive or hypoxic patient denies having any headache or URI symptoms no chest pain shortness of other cough no nausea vomiting no abdominal pain or diarrhea patient complaining of pain to the right thigh area to be mostly sharp almost 10 of 10 severity by the time he presented to hospital did have some improvement with the pain me dication with associated swelling and redness and did have some purulent drainage patient on arrival to the ER did have white count of 10,000 with a left shift BUN/creatinine has been normal liver enzymes are normal CRP 16.5 local cultures obtained currently growing presumptive MRSA blood culture pending patient has been treated with vancomycin and cefepime infectious disease was consulted today for further management of antibiotic therapy Review of Systems Positive point and negatives has been mentioned in the HPI, complete review of systems was performed and all other systems are negative Past Medical History Past Medical History: Thyroid Disorder Additional Past Medical History / Comment(s): allergy-induced asthma History of Any Multi-Drug Resistant Organisms: None Reported Past Surgical History: Section, Tubal Ligation Additional Past Surgical History / Comment(s): uterine ablation Past Psychological History: No Psychological Hx Reported Smoking Status: Never smoker Past Alcohol Use History: Occasional Past Drug Use History: None Reported - Past Family History Mother Family Medical History: Hypertension Medications and Allergies Home Medications Medication Instructions Recorded Confirmed Type Fexofenadine HCl [Lakeisha Allergy] 180 mg PO DAILY 06/02/21 06/21/24 History Levothyroxine Sodium [Synthroid] 50 mcg PO DAILY 06/02/21 06/21/24 History Montelukast Sodium [Singulair] 10 mg PO HS 06/02/21 06/21/24 History Albuterol Sulfate [Albuterol 2 puff PO RT-Q6H PRN 06/21/24 06/21/24 History Sulfate Hfa] Budesonide-Formot 160-4.5 Mcg 2 puff PO RT-BID PRN 06/21/24 06/21/24 History [Symbicort 160-4.5 Mcg Inhaler] Ergocalciferol [Vitamin D2 (1250 1,250 mcg PO FR 06/21/24 06/21/24 History Mcg = 39919 Iu)] Allergies Allergy/AdvReac Type Severity Reaction Status Date / Time No Known Allergies Allergy Verified 06/21/24 07:14 Physical Exam Vitals: Vital Signs Temp Pulse Resp BP Pulse Ox 06/22/24 07:00 97.8 F 72 17 128/77 98 06/22/24 02:00 98.2 F 81 18 90/58 96 06/21/24 20:00 97.7 F 76 18 103/71 97 06/21/24 14:10 98.0 F 87 16 121/77 97 Intake and Output 06/21/24 06/22/24 06/22/24 22:59 06:59 14:59 Intake Total 480 118 Balance 480 118 Intake: Oral 480 118 Other: # Voids 1 3 GENERAL DESCRIPTION: Middle-aged female lying in bed, no distress. No tachypnea or accessory muscle of respiration use. HEENT: Shows Pallor , no scleral icterus. Oral mucous membrane is dry. No pharyngeal erythema or thrush NECK: Trachea central, no thyromegaly. LUNGS: Unlabored breathing. Clear to auscultation anteriorly. No wheeze or crackle. HEART: S1, S2, regular rate and rhythm. No loud murmur ABDOMEN: Soft, no tenderness , guarding or rigidity, no organomegaly EXTREMITIES: Right medial thigh did have extensive swelling redness slight induration and purulent drainage SKIN: No rash, no masses palpable. NEUROLOGICAL: The patient is awake, alert, oriented x3, mood and affect normal. Results CBC & Chem 7: 06/21/24 07:20 06/22/24 05:50 Labs: Abnormal Lab Results - Last 24 Hours (Table) 06/21/24 Range/Units 01:05 Sodium 136 L (137-145) mmol/L Chloride 109 H (98-107) mmol/L Glucose 109 H (74-99) mg/dL C-Reactive Protein 16.5 H (<1.0) mg/dL Total Protein 5.7 L (6.3-8.2) g/dL Microbiology - Last 24 Hours (Table) 06/21/24 00:05 Gram Stain - Preliminary Thigh - Right Assessment and Plan (1) Abscess of right thigh Current Visit: Yes Status: Acute Code(s): L02.415 - CUTANEOUS ABSCESS OF RIGHT LOWER LIMB SNOMED Code(s): 61225171836673748 (2) MRSA (methicillin resistant staph aureus) culture positive Current Visit: Yes Status: Acute Code(s): Z22.322 - CARRIER OR SUSPECTED CARRIER OF METHICILLIN RESIS STAPH SNOMED Code(s): 784794510 (3) Failure of outpatient treatment Current Visit: Yes Status: Acute Code(s): Z78.9 - OTHER SPECIFIED HEALTH STATUS SNOMED Code(s): 587430291 Plan: 1patient presented hospital with extensive right thigh abscess in this patient who did have spontaneous drainage of this abscess patient did have a CT of the femur we did shows anterior soft tissue infection interestingly no draining abscess on CT the patient is draining profusely spontaneously likely from MRSA failing outpatient Bactrim and the therapy likely because of the burden of disease 2vancomycin pharmacy to dose target trough of 15 while watching kidney function and Vanco trough closely however discontinue cefepime 3patient may need IV vancomycin for few days keeping in mind extensive disease and also while waiting for the culture to finalize Multiple question concern answered We will follow on clinical condition and cultures to further adjust medication if needed Thank you for this consultation we will follow the patient along with you Dictation was produced using [employer] dictation software. please excuse any grammatical, word or spelling errors. Time with Patient: Greater than 30
[2024-06-23 05:19] LABS: African American GFR (CKD) >90 (>60 ml/min/1.73 sqM); Non-African American GFR(CKD) >90 (>60 ml/min/1.73 sqM)
[2024-06-23] MEDS: VANCOMYCIN TROUGH DUE 1 EACH MISC MISCELLANE ONE (06:27)
--- NOTE | 2024-06-23 13:33 | P.PN ---
Subjective Progress Note Date: 06/23/24 54-year-old female with a PMH of hypothyroidism and allergy induced asthma who presents to the emergency room with complaints of right thigh redness and pain. She was seen at an urgent care center this past Tuesday and was started on Bactrim which has not alleviated her symptoms. Right thigh CT revealed findings of acute cellulitis without any obvious abscess. The patient had a Tmax of 100.1 F with pulse of 111 and BP 128/79 with SpO2 90% on room air. Patient was started on Vancomycin and Cefepime and admitted for treatment of cellulitis failed outpatient therapy. 06/22 Patient was seen and examined. Erythema around the right inner thigh improved when compared to outline. Still draining a significant amount of purulent material. Renal function WNL. WCx growing rare PMN and gram + cocci. 06/23 Patient was seen and examined. Improved erythema. No complaints toady. Renal function WNL. WCx growing presumptive MRSA. ID on board, continue Vancomycin, DC Cefepime. General: non toxic, no distress, appears at stated age Derm: warm, dry Head: atraumatic, normocephalic, symmetric Eyes: EOMI, no lid lag, anicteric sclera Mouth: no lip lesion, mucus membranes moist Cardiovascular: good distal perfusion in all 4 extremities Lungs: breathing comfortably, no accessory muscle use Ext: right medial thigh with significant erythema improved when compared to outline draining purulent material Neuro: no focal neuro deficits Psych: Alert, oriented, appropriate affect Based on my assessment of this patient, this patient meets a high complexity level of care. MRSA Cellulitis: CT no abscess identified. Continue Vancomycin dosed per pharmacy. Monitor renal function while on Vancomycin. Follow final Wound Cx. ID on board. Asthma not in acute exacerbation: Singulair 10 mg PO QHS. Hypothyroidism: Synthroid 50 mcg PO QD. CODE STATUS: FULL CODE DVT Prophylaxis: Lovenox SQ GI Prophylaxis: Designated medical POA if patient is not able to make medical decisions for themselves: I have reviewed the following oracle iam consultant notes: ID. I have reviewed the results of the following tests: Renal function. WCx I have ordered the following tests: Renal function. I have discussed the care of this patient with the following independent historian: I have independently interpreted the following test below: I have discussed the management of this patient with the following physician: Objective - Vital Signs Vital signs: Vital Signs Temp 97.9 F 06/23/24 07:00 Pulse 79 06/23/24 07:00 Resp 15 06/23/24 07:00 BP 111/72 06/23/24 07:00 Pulse Ox 95 06/23/24 07:00 FiO2 Intake & Output 06/22/24 06/23/24 06/23/24 18:59 06:59 18:59 Intake Total 954 Balance 954 Intake: Intake, IV Titration 600 Amount Cefepime 2 gm In Sodium 100 Chloride 0.9% 100 ml @ 200 mls/hr IVPB Q8H [facility] Rx#:[id number] Vancomycin 1,500 mg In 500 Sodium Chloride 0.9% 500 ml 500 ml @ 167 mls/hr IVPB Q12H [facility] Rx#: [id number] Oral 354 Other: # Voids 2 - Labs CBC & Chem 7: 06/21/24 07:20 06/23/24 04:42 Labs: Microbiology - Last 24 Hours (Table) 06/21/24 00:05 Gram Stain - Final Thigh - Right Wound Culture - Final Methicillin resist S. aureus 06/21/24 16:20 Gram Stain - Preliminary Thigh - Right Wound Culture - Preliminary Presumptive MRSA 06/21/24 07:20 Blood Culture - Preliminary Blood
[2024-06-23] MEDS: VANCOMYCIN 1,750 MG in SODIUM CHLORIDE 0.9% 500 ML 500 ML IVPB SCH (17:52)
--- NOTE | 2024-06-23 21:30 | P.PN ---
Subjective Progress Note Date: 06/23/24 Principal diagnosis: Reason for follow-up is right thigh abscess MRSA Patient is a 54-year-old female with past medical history negative for drug induced asthma hypothyroidism presenting to the ER for evaluation of right thigh pain swelling and redness patient has been diagnosed with a right thigh abscess and cellulitis with spontaneous drainage culture positive for MRSA blood culture so far pending. On today's evaluation that is 06/23/2024,the patient denies any fever or any chills, patient is breathing comfortably on room air, the patient denies chest pain shortness of breath and no significant cough, patient denies abdominal pain, no nausea vomiting or diarrhea. Patient pain and redness to the right eye has slightly decreased in intensity. Patient did have a creatinine 0.77 local culture with MRSA sensitivities pending Objective - Vital Signs Vital signs: Vital Signs Temp 97.9 F 06/23/24 07:00 Pulse 79 06/23/24 07:00 Resp 15 06/23/24 07:00 BP 111/72 06/23/24 07:00 Pulse Ox 95 06/23/24 07:00 FiO2 Intake & Output 06/22/24 06/23/24 06/23/24 18:59 06:59 18:59 Intake Total 954 Balance 954 Intake: Intake, IV Titration 600 Amount Cefepime 2 gm In Sodium 100 Chloride 0.9% 100 ml @ 200 mls/hr IVPB Q8H [facility] Rx#:[id number] Vancomycin 1,500 mg In 500 Sodium Chloride 0.9% 500 ml 500 ml @ 167 mls/hr IVPB Q12H [facility] Rx#: [id number] Oral 354 Other: # Voids 2 - Exam GENERAL DESCRIPTION: Middle-age female lying in bed in no distress RESPIRATORY SYSTEM: Unlabored breathing , decreased breath sounds at bases HEART: S1 S2 regular rate and rhythm , ABDOMEN: Soft , no tenderness EXTREMITIES: Right medial thigh swelling redness slightly decreased - Labs CBC & Chem 7: 06/21/24 07:20 06/23/24 04:42 Labs: Microbiology - Last 24 Hours (Table) 06/21/24 16:20 Gram Stain - Preliminary Thigh - Right Wound Culture - Preliminary Presumptive MRSA 06/21/24 07:20 Blood Culture - Preliminary Blood 06/21/24 00:05 Gram Stain - Preliminary Thigh - Right Wound Culture - Preliminary Presumptive MRSA Assessment and Plan (1) Abscess of right thigh Current Visit: Yes Status: Acute Code(s): L02.415 - CUTANEOUS ABSCESS OF RIGHT LOWER LIMB SNOMED Code(s): 23901564014074185 (2) MRSA (methicillin resistant staph aureus) culture positive Current Visit: Yes Status: Acute Code(s): Z22.322 - CARRIER OR SUSPECTED CARRIER OF METHICILLIN RESIS STAPH SNOMED Code(s): 335260515 (3) Failure of outpatient treatment Current Visit: Yes Status: Acute Code(s): Z78.9 - OTHER SPECIFIED HEALTH STATUS SNOMED Code(s): 477135754 Plan: 1patient presented hospital with extensive right thigh abscess in this patient who did have spontaneous drainage of this abscess patient did have a CT of the femur we did shows anterior soft tissue infection interestingly no draining abscess on CT the patient is draining profusely spontaneously likely from MRSA failing outpatient Bactrim and the therapy likely because of the burden of disease 2patient to continue with vancomycin pharmacy to dose target trough of 15 while watching kidney function and Vanco trough closely while waiting for the sensitivities to finalize and monitor clinical course closely Dictation was produced using [employer] dictation software. please excuse any g rammatical, word or spelling errors. Time with Patient: Less than 30
[2024-06-24 04:23] LABS: African American GFR (CKD) >90 (>60 ml/min/1.73 sqM); Non-African American GFR(CKD) >90 (>60 ml/min/1.73 sqM)
--- NOTE | 2024-06-24 12:03 | P.PN ---
Subjective Progress Note Date: 06/24/24 54-year-old female with a PMH of hypothyroidism and allergy induced asthma who presents to the emergency room with complaints of right thigh redness and pain. She was seen at an urgent care center this past Tuesday and was started on Bactrim which has not alleviated her symptoms. Right thigh CT revealed findings of acute cellulitis without any obvious abscess. The patient had a Tmax of 100.1 F with pulse of 111 and BP 128/79 with SpO2 90% on room air. Patient was started on Vancomycin and Cefepime and admitted for treatment of cellulitis failed outpatient therapy. 06/22 Patient was seen and examined. Erythema around the right inner thigh improved when compared to outline. Still draining a significant amount of purulent material. Renal function WNL. WCx growing rare PMN and gram + cocci. 06/23 Patient was seen and examined. Improved erythema. No complaints toady. Renal function WNL. WCx growing presumptive MRSA. ID on board, continue Vancomycin, DC Cefepime. 06/24 Patient was seen and examined. No complaints. Discussed with Dr. Jones, still significant induration, continue Vancomycin IV. Renal function WNL. WCx growing MRSA sensitive to Clinda, Doxy, Bactrim. General: non toxic, no distress, appears at stated age Derm: warm, dry Head: atraumatic, normocephalic, symmetric Eyes: EOMI, no lid lag, anicteric sclera Mouth: no lip lesion, mucus membranes moist Cardiovascular: good distal perfusion in all 4 extremities Lungs: breathing comfortably, no accessory muscle use Ext: right medial thigh with significant induration around the opening of the wound, improved when compared to outline Neuro: no focal neuro deficits Psych: Alert, oriented, appropriate affect Based on my assessment of this patient, this patient meets a high complexity level of care. MRSA Cellulitis: CT no abscess identified. Continue Vancomycin dosed per pharmacy. Monitor renal function while on Vancomycin. ID on board. Asthma not in acute exacerbation: Singulair 10 mg PO QHS. Hypothyroidism: Synthroid 50 mcg PO QD. CODE STATUS: FULL CODE DVT Prophylaxis: Lovenox SQ GI Prophylaxis: Designated medical POA if patient is not able to make medical decisions for themselves: I have reviewed the following senior consultant notes: I have reviewed the results of the following tests: Renal function. WCx I have ordered the following tests: Renal function. I have discussed the care of this patient with the following independent historian: I have independently interpreted the following test below: I have discussed the management of this patient with the following physician: Dr. Jones. Objective - Vital Signs Vital signs: Vital Signs Temp 97.7 F 06/24/24 07:10 Pulse 69 06/24/24 07:10 Resp 17 06/24/24 07:10 BP 113/74 06/24/24 07:10 Pulse Ox 96 06/24/24 07:10 FiO2 Intake & Output 06/23/24 06/24/24 06/24/24 18:59 06:59 18:59 Intake Total 236 500 Balance 236 500 Intake: Intake, IV Titration 500 Amount Vancomycin 1,750 mg In 500 Sodium Chloride 0.9% 500 ml 500 ml @ 167 mls/hr IVPB Q12H [facility] Rx#: [id number] Oral 236 Other: # Voids 1 2 - Labs CBC & Chem 7: 06/21/24 07:20 06/24/24 03:42 Labs: Microbiology - Last 24 Hours (Table) 06/21/24 16:20 Gram Stain - Final Thigh - Right Wound Culture - Final Methicillin resist S. aureus 06/21/24 07:20 Blood Culture - Preliminary Blood 06/21/24 00:05 Anaerobic Culture - Preliminary Thigh - Right 06/21/24 00:05 Gram Stain - Final Thigh - Right Wound Culture - Final Methicillin resist S. aureus
[2024-06-24 15:14] VITALS: RESP 16
--- NOTE | 2024-06-24 15:23 | P.PN ---
Subjective Progress Note Date: 06/24/24 Principal diagnosis: Reason for follow-up is right thigh abscess MRSA Patient is a 54-year-old female with past medical history negative for drug induced asthma hypothyroidism presenting to the ER for evaluation of right thigh pain swelling and redness patient has been diagnosed with a right thigh abscess and cellulitis with spontaneous drainage culture positive for MRSA blood culture so far pending. On today's evaluation that is 06/24/2024,the patient remains to be afebrile, patient is on room air not requiring supplemental oxygen and denies any shortness of breath no chest pain or cough.Patient denies having any nausea or vomiting, no abdominal pain and no diarrhea right medial thigh swelling redness decreased still have significant area of induration denies drainage per patient. Patient did have a creatinine 0.74 culture finalized with MRSA that is sensitive to Bactrim DS Objective - Vital Signs Vital signs: Vital Signs Temp 97.7 F 06/24/24 07:10 Pulse 69 06/24/24 07:10 Resp 17 06/24/24 07:10 BP 113/74 06/24/24 07:10 Pulse Ox 96 06/24/24 07:10 FiO2 Intake & Output 06/23/24 06/24/24 06/24/24 18:59 06:59 18:59 Intake Total 236 500 Balance 236 500 Intake: Intake, IV Titration 500 Amount Vancomycin 1,750 mg In 500 Sodium Chloride 0.9% 500 ml 500 ml @ 167 mls/hr IVPB Q12H [facility] Rx#: [id number] Oral 236 Other: # Voids 1 2 - Exam GENERAL DESCRIPTION: Middle-age female lying in bed in no distress RESPIRATORY SYSTEM: Unlabored breathing , decreased breath sounds at bases HEART: S1 S2 regular rate and rhythm , ABDOMEN: Soft , no tenderness EXTREMITIES: Right medial thigh swelling redness slightly decreased - Labs CBC & Chem 7: 06/21/24 07:20 06/24/24 03:42 Labs: Microbiology - Last 24 Hours (Table) 06/21/24 16:20 Gram Stain - Final Thigh - Right Wound Culture - Final Methicillin resist S. aureus 06/21/24 07:20 Blood Culture - Preliminary Blood 06/21/24 00:05 Anaerobic Culture - Preliminary Thigh - Right 06/21/24 00:05 Gram Stain - Final Thigh - Right Wound Culture - Final Methicillin resist S. aureus Assessment and Plan (1) Abscess of right thigh Current Visit: Yes Status: Acute Code(s): L02.415 - CUTANEOUS ABSCESS OF RIGHT LOWER LIMB SNOMED Code(s): 23806918281540615 (2) MRSA (methicillin resistant staph aureus) culture positive Current Visit: Yes Status: Acute Code(s): Z22.322 - CARRIER OR SUSPECTED CARRIER OF METHICILLIN RESIS STAPH SNOMED Code(s): 206200758 (3) Failure of outpatient treatment Current Visit: Yes Status: Acute Code(s): Z78.9 - OTHER SPECIFIED HEALTH STATUS SNOMED Code(s): 972112144 Plan: 1patient [facility] hospital with extensive right thigh abscess in this patient who did have spontaneous drainage of this abscess patient did have a CT of the femur we did shows anterior soft tissue infection interestingly no draining abscess on CT the patient is draining profusely spontaneously likely from MRSA failing outpatient Bactrim and the therapy likely because of the burden of disease 2patient local culture has been finalized with MRSA that is sensitive to vancomycin and Bactrim DS keeping in mind the patient still have significant area of induration and possible concern for failure of oral antibiotics will keep on IV vancomycin following the day and reeval tomorrow if overall improvement may be able to DC on higher dose of Bactrim DS with close outpatient follow-up Dictation was produced using [employer] dictation software. please excuse any grammatical, word or spelling errors. Time with Patient: Less than 30
[2024-06-25 06:29] LABS: African American GFR (CKD) >90 (>60 ml/min/1.73 sqM); Non-African American GFR(CKD) >90 (>60 ml/min/1.73 sqM)
[2024-06-25 06:31] LABS: African American GFR (CKD) >90 (>60 ml/min/1.73 sqM); Non-African American GFR(CKD) >90 (>60 ml/min/1.73 sqM)
[2024-06-25] MEDS: VANCOMYCIN TROUGH DUE 1 EACH MISC MISCELLANE ONE (07:00)
[2024-06-25 08:12] VITALS: BP 118/77; PULSE 84; TEMP 98.2
--- NOTE | 2024-06-25 15:09 | P.DS ---
Providers Date of admission: 06/21/24 05:29 Expected date of discharge: 06/25/24 Attending physician: Tasha Snow MD Consults: 06/22/24 09:03 Consult Physician Routine Consulting Provider: Olga Jones Consult Reason/Comments: cellulitis with drainage Do you want consulting provider notified?: Yes Primary care physician: [facility] Course: 54-year-old female with a PMH of hypothyroidism and allergy induced asthma who presents to the emergency room with complaints of right thigh redness and pain. She was seen at an urgent care center this past Tuesday and was started on Bactrim which has not alleviated her symptoms. Right thigh CT revealed findings of acute cellulitis without any obvious abscess. The patient had a Tmax of 100.1 F with pulse of 111 and BP 128/79 with SpO2 90% on room air. Patient was started on Vancomycin and Cefepime and admitted for treatment of cellulitis failed outpatient therapy. Wound culture grew MRSA. ID consulted, Cefepime di scontinued. Erythema improved. Renal function remained stable. 06/25 Patient was seen and examined. Improved erythema. Discussed with JOHN Randall for discharge on Bactrim. Plans to follow up with PCP within 1-[address] Jones within 1 week of discharge. General: non toxic, no distress, appears at stated age Derm: warm, dry Head: atraumatic, normocephalic, symmetric Eyes: EOMI, no lid lag, anicteric sclera Mouth: no lip lesion, mucus membranes moist Cardiovascular: good distal perfusion in all 4 extremities Lungs: breathing comfortably, no accessory muscle use Ext: right medial thigh with significant induration around the opening of the wound, improved when compared to outline Neuro: no focal neuro deficits Psych: Alert, oriented, appropriate affect Discharge Diagnosis: MRSA Cellulitis Asthma not in acute exacerbation Hypothyroidism This complex discharge took 35 minutes to complete. Patient Condition at Discharge: Stable Plan - Discharge Summary New Discharge Prescriptions: New Sulfamethox-Tmp 800-160Mg [Bactrim DS 800-160 mg] 1 tab PO Q12HR #28 tab Continue Fexofenadine HCl [Lakeisha Allergy] 180 mg PO DAILY Albuterol Sulfate [Albuterol Sulfate Hfa] 2 puff PO RT-Q6H PRN PRN Reason: Shortness Of Breath Budesonide-Formot 160-4.5 Mcg [Symbicort 160-4.5 Mcg Inhaler] 2 puff PO RT- BID PRN PRN Reason: Difficulty Breathing Montelukast Sodium [Singulair] 10 mg PO HS Levothyroxine Sodium [Synthroid] 50 mcg PO DAILY Ergocalciferol [Vitamin D2 (1250 Mcg = 37213 Iu)] 1,250 mcg PO FR Discharge Medication List Fexofenadine HCl [Lakeisha Allergy] 180 mg PO DAILY 06/02/21 [History] Levothyroxine Sodium [Synthroid] 50 mcg PO DAILY 06/02/21 [History] Montelukast Sodium [Singulair] 10 mg PO HS 06/02/21 [History] Albuterol Sulfate [Albuterol Sulfate Hfa] 2 puff PO RT-Q6H PRN 06/21/24 [History] Budesonide-Formot 160-4.5 Mcg [Symbicort 160-4.5 Mcg Inhaler] 2 puff PO RT-BID PRN 06/21/24 [History] Ergocalciferol [Vitamin D2 (1250 Mcg = 96706 Iu)] 1,250 mcg PO FR 06/21/24 [History] Sulfamethox-Tmp 800-160Mg [Bactrim DS 800-160 mg] 1 tab PO Q12HR #28 tab 06/25/24 [Rx] Follow up Appointment(s)/Referral(s): Phillip Christensen DO [Primary Care Provider] - 1-2 days Olga Jones MD [STAFF PHYSICIAN] - 1 Week Patient Instructions/Handouts: Cellulitis (GEN) Discharge Disposition: HOME SELF-CARE
--- NOTE | 2024-06-25 15:15 | P.PN ---
Subjective Progress Note Date: 06/25/24 Principal diagnosis: Reason for follow-up is right thigh abscess MRSA Patient is a 54-year-old female with past medical history negative for drug induced asthma hypothyroidism presenting to the ER for evaluation of right thigh pain swelling and redness patient has been diagnosed with a right thigh abscess and cellulitis with spontaneous drainage culture positive for MRSA blood culture so far pending. On today's evaluation that is 06/25/2024, the patient continues to be afebrile, the patient is on room air and breathing comfortably, the Pt denies having any chest pain or cough, the patient denies having any abdominal pain no vomiting or any diarrhea patient right medial thigh overall induration slightly decreased did have minimal drainage. The patient white count is 8.2, creatinine 0.74 potassium is 3.9 blood culture negative Objective - Vital Signs Vital signs: Vital Signs Temp 98.2 F 06/25/24 07:00 Pulse 84 06/25/24 07:00 Resp 16 06/25/24 07:00 BP 118/77 06/25/24 07:00 Pulse Ox 92 L 06/25/24 07:00 FiO2 Intake & Output 06/24/24 06/25/24 06/25/24 18:59 06:59 18:59 Intake Total 1236 240 Balance 1236 240 Intake: Intake, IV Titration 1000 Amount Vancomycin 1,750 mg In 1000 Sodium Chloride 0.9% 500 ml 500 ml @ 167 mls/hr IVPB Q12H [facility] Rx#: [id number] Oral 236 240 Other: # Voids 1 3 # Bowel Movements 1 - Exam GENERAL DESCRIPTION: Middle-age female lying in bed in no distress RESPIRATORY SYSTEM: Unlabored breathing , decreased breath sounds at bases HEART: S1 S2 regular rate and rhythm , ABDOMEN: Soft , no tenderness EXTREMITIES: Right medial thigh swelling redness slightly decreased - Labs CBC & Chem 7: 06/21/24 07:20 06/25/24 05:25 Labs: Microbiology - Last 24 Hours (Table) 06/21/24 00:05 Anaerobic Culture - Final Thigh - Right 06/21/24 07:20 Blood Culture - Preliminary Blood Assessment and Plan (1) Abscess of right thigh Status: Acute Code(s): L02.415 - CUTANEOUS ABSCESS OF RIGHT LOWER LIMB SNOMED Code(s): 77088330763314863 (2) MRSA (methicillin resistant staph aureus) culture positive Status: Acute Code(s): Z22.322 - CARRIER OR SUSPECTED CARRIER OF METHICILLIN RESIS STAPH SNOMED Code(s): 464114641 (3) Failure of outpatient treatment Status: Acute Code(s): Z78.9 - OTHER SPECIFIED HEALTH STATUS SNOMED Code(s): 953965382 Plan: 1patient presented hospital with extensive right thigh abscess in this patient who did have spontaneous drainage of this abscess patient did have a CT of the femur we did shows anterior soft tissue infection interestingly no draining abscess on CT the patient is draining profusely spontaneously likely from MRSA failing outpatient Bactrim and the therapy likely because of the burden of disease 2patient local culture has been finalized with MRSA patient did have some clinical improvement we will consider Bactrim DS to twice a day for 3 days followed by 1 twice a day for 10 days prescription sent to the pharmacy and close outpatient follow-up discussed with admitting physician Dictation was produced using [employer] dictation software. please excuse any gram matical, word or spelling errors. Time with Patient: Less than 30
== END 2024-06-25 13:10 | disposition home or self-care (01) ==
LOC: EC 21:47 → 6NMEDSUR 06-21 05:29
PROVIDERS: ADMIT Internal Medicine; ATTEND Internal Medicine
DX: L02.415 Cutaneous abscess of right lower limb (principal); L03.115 Cellulitis of right lower limb; E03.9 Hypothyroidism, unspecified; J45.990 Exercise induced bronchospasm; B95.62 Methicillin resistant Staphylococcus aureus infection as the cause of diseases classified elsewhere; Z79.51 Long term (current) use of inhaled steroids; Z79.899 Other long term (current) drug therapy; Z82.49 Family history of ischemic heart disease and other diseases of the circulatory system; Z79.890 Hormone replacement therapy
CPT/HCPCS: 80048; 80053; 80202; 82565; 83605; 85025; 85027; 85652; 86140; 87040; 87070; 87075; 87077; 87186; 87205; 96365; 96366; 96367; 96368; 96372; 99284

== ENCOUNTER → 2024-07-14 | Outpatient (CLI) | payer OTHER ==
[2024-07-15 07:35] LABS: ALT 19 U/L (8-44); AST 19 U/L (13-35); Albumin 4.3 g/dL (3.8-4.9); Albumin/Globulin Ratio 2.05 Ratio (1.60-3.17); Alkaline Phosphatase 81 U/L (41-126); BUN/Creat Ratio 14.11 Ratio (12.00-20.00); Blood Urea Nitrogen 12.7 mg/dL (9.0-27.0); Calcium 9.3 mg/dL (8.7-10.3); Carbon Dioxide 23.1 mmol/L (21.6-31.8); Chloride 107 mmol/L (96-109); Globulin 2.1 g/dL (1.6-3.3); Glucose 96 mg/dL (70-110); Potassium 4.3 mmol/L (3.5-5.5); Sodium 140 mmol/L (135-145); Total Bilirubin 0.3 mg/dL (0.3-1.2); Total Protein 6.4 g/dL (6.2-8.2)
== END | disposition home or self-care (01) ==
LOC: LABWHC1 10:18
PROVIDERS: ATTEND Internal Medicine Endocrinology, Diabetes & Metabolism
DX: E03.8 Other specified hypothyroidism (principal); E06.3 Autoimmune thyroiditis; Z86.39 Personal history of other endocrine, nutritional and metabolic disease
CPT/HCPCS: 36415; 80053; 82306; 83970; 84443

== ENCOUNTER → 2024-12-25 | Outpatient (CLI) | payer OTHER ==
--- NOTE | 2024-12-26 07:40 | MM ---
Reason for Exam: Screening (asymptomatic). Last mammogram was performed 2 year(s) and 0 month(s) ago. Patient History: Menarche at age 11. First Full-Term at age 28. Late child-bearing (after 28). Perimenopausal. Maternal grandmother had breast cancer, age 55. Risk Values: Mago 5 year model risk: 1.7%. NCI Lifetime model risk: 10.9%. Tissue Density: There are scattered areas of fibroglandular density. Findings: Analyzed By CAD. Unchanged low axillary tail lymph node on the left. There is no suspicious group of microcalcifications or new suspicious mass in either breast. Overall Assessment: Negative, BI-RAD 1 Management: Screening Mammogram of both breasts in 1 year. Patient should continue monthly self-breast exams. A clinical breast exam by your physician is recommended on an annual basis. This exam should not preclude additional follow-up of suspicious palpable abnormalities. Note on Mago scores and lifetime risk: 1. A Mago score greater than 3% is considered moderate risk. If this is the case, consider specialist referral to assess eligibility for a risk reducing agent. 2. If overall lifetime risk for the development of breast cancer is 20% or higher, the patient may qualify for future screening with alternating mammogram and breast MRI. [facility], , 12/26/2024 7:37 AM. Electronically signed and approved by: Perez English M.D. Radiologist
== END | disposition home or self-care (01) ==
LOC: RADMAMWWP 15:44
PROVIDERS: ATTEND Family Medicine
DX: Z12.31 Encounter for screening mammogram for malignant neoplasm of breast (principal); R92.323 Mammographic fibroglandular density, bilateral breasts; Z80.3 Family history of malignant neoplasm of breast
CPT/HCPCS: 77063; 77067

== ENCOUNTER → 2025-04-06 | Outpatient (CLI) | payer OTHER ==
[2025-04-06 13:43] LABS: ALT 18 U/L (8-44); AST 20 U/L (13-35); Albumin 4.3 g/dL (3.8-4.9); Albumin/Globulin Ratio 2.39 Ratio (1.60-3.17); Alkaline Phosphatase 75 U/L (41-126); Blood Urea Nitrogen 14.4 mg/dL (9.0-27.0); Calcium 9.3 mg/dL (8.7-10.3); Carbon Dioxide 23.6 mmol/L (21.6-31.8); Chloride 107 mmol/L (96-109); Globulin 1.8 g/dL (1.6-3.3); Glucose 90 mg/dL (70-110); Potassium 4.4 mmol/L (3.5-5.5); Sodium 140 mmol/L (135-145); Total Bilirubin 0.4 mg/dL (0.3-1.2); Total Protein 6.1 g/dL (6.2-8.2)
== END | disposition home or self-care (01) ==
LOC: LABWHC1 09:10
PROVIDERS: ATTEND Internal Medicine Endocrinology, Diabetes & Metabolism
DX: E03.8 Other specified hypothyroidism (principal); E55.9 Vitamin D deficiency, unspecified; Z86.39 Personal history of other endocrine, nutritional and metabolic disease
CPT/HCPCS: 36415; 80053; 82306; 83970; 84443

== ENCOUNTER 2025-04-19 09:11 | Day surgery (SDC) | payer OTHER ==
[2025-04-17 15:51] VITALS: BMI 35.0
[2025-04-19] MEDS: IV FLUID CONTINUATION 1,000 ML IV ONE (09:28)
[2025-04-19 09:37] VITALS: TEMP 97.4
[2025-04-19] MEDS: LACTATED RINGERS 1,000 ML IV SCH (09:44)
[2025-04-19] MEDS ORDERED: PROPOFOL 10 MG/ML 20 ML VIAL IV ONE (09:47)
--- NOTE | 2025-04-19 10:01 | P.PCN ---
Date of Procedure: 04/19/25 Procedure(s) Performed: BRIEF HISTORY: Patient is a 55-year-old, pleasant, white female scheduled for an upper endoscopy y as above evaluation of GERD, intermittent dysphagia to solids and chronic throat clearing of several years duration. PROCEDURE PERFORMED: Esophagogastroduodenoscopy with biopsy.. PREOPERATIVE DIAGNOSIS: GERD/intermittent dysphagia to solids . IV sedation per anesthesia. PROCEDURE: After informed consent was obtained, the patient was brought into the endoscopy unit. IV sedation was administered by Anesthesia under continuous monitoring. Initially the Olympus GIF-140 video endoscope was inserted into the mouth. Esophagus intubated without any difficulty. It was gradually advanced into the stomach and duodenum and carefully examined. The bulb and the second part of the duodenum appeared normal. The scope at this time was withdrawn to the stomach, adequately insufflated with air, and upon careful examination, mucosa of the antrum, and mild diffuse gastritis and biopsies were done from this area. Mucosa of the body, cardia and the fundus appeared normal. The scope was then withdrawn into the esophagus. Small hiatal hernia noted. The GE junction was located at 39 cm from the incisors. There was circumferential erythema of the GE junction consistent with LA grade a reflux esophagitis. The rest of the esophagus appeared normal. There were no erosions or ulcerations seen and the patient tolerated the procedure well. IMPRESSION: 1. Mild mild antral gastritis. 2. Circumferential erythema of the GE junction consistent with LA grade a reflux esophagitis 3. Multiple small gastric polyps 4. Small hiatal hernia. RECOMMENDATIONS: The findings of this examination were discussed with the patient as well as family. She was advised to follow-up with the biopsy results. Her symptoms are suggestive of gastroesophageal reflux and hence advised to start omeprazole 20 mg daily and follow antireflux measures.
[2025-04-19 10:26] VITALS: BP 104/93; PULSE 69; RESP 14
== END 2025-04-19 10:50 | disposition home or self-care (01) ==
LOC: ORWHC2ENDO 09:11
PROVIDERS: ATTEND Internal Medicine Gastroenterology
DX: K21.00 Gastro-esophageal reflux disease with esophagitis, without bleeding (principal); K29.50 Unspecified chronic gastritis without bleeding; K31.89 Other diseases of stomach and duodenum; K31.7 Polyp of stomach and duodenum; K44.9 Diaphragmatic hernia without obstruction or gangrene; J45.909 Unspecified asthma, uncomplicated; E07.9 Disorder of thyroid, unspecified; Z79.890 Hormone replacement therapy; Z79.51 Long term (current) use of inhaled steroids; Z79.899 Other long term (current) drug therapy
CPT/HCPCS: 88305; 43239; J2704